=== PATIENT | male | born 1980 | race Caucasian/White ===

== ENCOUNTER → 2022-07-02 10:32 | Outpatient (BNVA) | payer OTHER, SELFPAY | PROVIDERS: Family Provider Nurse Practitioner; PCP Family Medicine; Visit Provider Family Medicine | DX: B96.89 Other specified bacterial agents as the cause of diseases classified elsewhere (principal); J01.90 Acute sinusitis, unspecified; J30.89 Other allergic rhinitis | CPT/HCPCS: 87400 ==

== ENCOUNTER → 2022-09-07 13:33 | Outpatient (BNVA) | payer OTHER, SELFPAY | PROVIDERS: Family Provider Nurse Practitioner; PCP Family Medicine; Visit Provider Nurse Practitioner | DX: M25.522 Pain in left elbow (principal) | CPT/HCPCS: 73080 ==

== ENCOUNTER → 2022-09-13 13:55 | Outpatient (BNVA) | payer OTHER, SELFPAY | PROVIDERS: Family Provider Nurse Practitioner; PCP Family Medicine; Referring Provider Nurse Practitioner; Visit Provider Physician Assistant | DX: S59.902A Unspecified injury of left elbow, initial encounter (principal); W17.89XA Other fall from one level to another, initial encounter | CPT/HCPCS: 73080 ==

== ENCOUNTER 2022-11-02 13:02 | Outpatient (CLI) | payer OTHER, MEDICAID, SELFPAY ==
--- NOTE | 2022-11-02 13:45 | MR_ITS ---
WS: [id number] MRI LEFT ELBOW without CONTRAST. COMPARISON: Radiographs 09/13/2022 Multiplanar, multisequence imaging is performed without contrast. No acute fractures are identified. There is very subtle increased T2 signal in the lateralmost radial head. This corresponds to the palpable marker that was placed at the area of pain. The adjacent radi al collateral ligament and common extensor tendon are normal course. No signal abnormality to suggest a recent injury. There is no joint effusion. No loose body or fracture. Biceps tendon and triceps te ndon are normal. No muscle atrophy or edema. No osteochondral lesions. MR/MR elbow LT wo con* [id number] IMPRESSION: 1. Very small amount of marrow edema in the lateral radial head. This correspo nds to the palpable marker placed in the area of pain. 2. Normal appearance of the radial collateral ligament and common extensor ten don. 3. No joint effusion.
== END 2022-11-02 13:03 | disposition home or self-care (01) ==
LOC: RAD 13:07
PROVIDERS: PCP Family Medicine; Visit Provider Physician Assistant
DX: M25.522 Pain in left elbow (principal)
CPT/HCPCS: 73221

== ENCOUNTER → 2023-12-23 11:40 | Outpatient (BNVA) | payer OTHER, SELFPAY | PROVIDERS: PCP Nurse Practitioner Family; Visit Provider Nurse Practitioner Family | DX: M25.572 Pain in left ankle and joints of left foot (principal) | CPT/HCPCS: 73610 ==